=== PATIENT | male | born 1955 | race Caucasian/White ===

== ENCOUNTER 2017-04-23 09:52 | Day surgery (SDC) | payer OTHER ==
[2017-04-22 08:57] VITALS: BMI 25.0
[~2017-04-23 09:52] MED LIST: LACTATED RINGERS 1,000 ML IV SCH
[2017-04-23 10:26] VITALS: RESP 16; TEMP 97.6
[2017-04-23] MEDS ORDERED: LIDOCAINE 1% 20 ML VIAL (10MG/ML) FOR IV START INTRADERMA ONE (10:35)
[2017-04-23] MEDS ORDERED: PROPOFOL 10 MG/ML 20 ML VIAL IV ONE (11:08)
--- NOTE | 2017-04-23 11:28 | P.PCN ---
Date of Procedure: 04/23/17 Procedure(s) Performed: BRIEF HISTORY: Patient is a 61-year-old pleasant white male, scheduled for an elective colonoscopy as a part of evaluation of prior history of colon polyps. PROCEDURE PERFORMED: Colonoscopy with snare polypectomy. PREOPERATIVE DIAGNOSIS: Colon polyps. IV sedation per Anesthesia. PROCEDURE: After informed consent was obtained, the patient, was brought into the endoscopy unit. IV sedation was administered by Anesthesia under continuous monitoring. Digital rectal examination was normal. Initially the Olympus CF- 160 flexible video colonoscope was then inserted in the rectum, gradually advanced into the cecum without any difficulty. Careful examination was performed as the scope was gradually being withdrawn. Ileocecal valve and the appendiceal orifice were visualized and appeared normal. Prep was excellent. Mucosa of the cecum, appeared normal. In the ascending colon there was a 1 cm polyp removed by snare polypectomy. The rest of the ascending colon, transverse colon, appeared normal. In the descending colon at the 45 cm from the anal verge there was a 1 segment of polyp removed by snare polypectomy. In the sigmoid colon there was a 1.5 cm pancreatic polyp status post polypectomy. In the rectum; there was another 1 cm polyp removed by snare polypectomy. Rest of the descending colon, sigmoid colon, and rectum appeared normal. Retroflexion was performed in the rectum and no lesions were seen. The patient tolerated the procedure well. IMPRESSION: 1 cm ascending colon polyp status post was snare polypectomy 1 cm descending colon polyp serous was snare polypectomy 1.5 cm pedunculated sigmoid colon polyp serous was snare polypectomy 1 cm rectosigmoid polyp serous posterior polypectomy RECOMMENDATIONS: Findings of this examination were discussed with the patient as well as his family. He was advised to follow with the biopsy results. If the biopsy reveals tubular adenoma, he can have a repeat colonoscopy in 3 years.
[2017-04-23 12:06] VITALS: BP 116/68; PULSE 56
== END 2017-04-23 12:10 | disposition home or self-care (01) ==
LOC: ORWHC2ENDO 09:52
PROVIDERS: ATTEND Internal Medicine Gastroenterology
DX: Z12.11 Encounter for screening for malignant neoplasm of colon (principal); D12.2 Benign neoplasm of ascending colon; D12.4 Benign neoplasm of descending colon; D12.5 Benign neoplasm of sigmoid colon; D12.7 Benign neoplasm of rectosigmoid junction; Z86.010 Personal history of colon polyps; E78.5 Hyperlipidemia, unspecified; Z79.899 Other long term (current) drug therapy
CPT/HCPCS: 88305; 45385; J2704

== ENCOUNTER 2020-12-01 10:47 | Day surgery (SDC) | payer OTHER ==
[2020-12-01 12:55] VITALS: TEMP 97.5
[2020-12-01] MEDS ORDERED: LIDOCAINE 1% (10MG/ML) FOR IV START INTRADERMA ONE (13:02)
[2020-12-01] MEDS ORDERED: LACTATED RINGERS 1,000 ML IV ONE (13:02)
[2020-12-01] MEDS ORDERED: PROPOFOL 10 MG/ML 20 ML VIAL IV ONE (14:39)
--- NOTE | 2020-12-01 15:10 | P.PCN ---
Date of Procedure: 12/01/20 Procedure(s) Performed: BRIEF HISTORY: Patient is a 64-year-old pleasant white male scheduled for an elective colonoscopy as a part of value should prior history of colon polyps. Last coloscopy was 3 years ago. PROCEDURE PERFORMED: Colonoscopy snare polypectomy. PREOPERATIVE DIAGNOSIS: History of colon polyps. IV sedation per Anesthesia. PROCEDURE: After informed consent was obtained, the patient, was brought into the endoscopy unit. IV sedation was administered by Anesthesia under continuous monitoring. Digital rectal examination was normal. Initially the Olympus CF-160 flexible video colonoscope was then inserted in the rectum, gradually advanced into the cecum without any difficulty. Careful examination was performed as the scope was gradually being withdrawn. Ileocecal valve and the appendiceal orifice were visualized and appeared normal. Prep was excellent. 5 mm cecal polyp status post polypectomy Mucosa of the cecum, ascending colon, transverse colon, descending colon appeared normal. In the sigmoid colon there was a 1 segment of polyp removed by snare polypectomy. Rest of the, sigmoid colon, and rectum appeared normal. Retroflexion was performed in the rectum and no lesions were seen. The patient tolerated the procedure well. IMPRESSION: 5 mm cecal polyp status post polypectomy 7-8 mm sigmoid polyp status post polypectomy .RECOMMENDATIONS: Findings of this examination were discussed with the patientas well as his family. He was advised to follow with the biopsy results. If the biopsy revealed adenoma he can have a repeat colonoscopy in 5 years].
[2020-12-01 15:37] VITALS: BP 108/72; PULSE 62; RESP 16
== END 2020-12-01 16:01 | disposition home or self-care (01) ==
LOC: ORWHC2ENDO 10:47
PROVIDERS: ATTEND Internal Medicine Gastroenterology
DX: Z12.11 Encounter for screening for malignant neoplasm of colon (principal); D12.0 Benign neoplasm of cecum; D12.5 Benign neoplasm of sigmoid colon; Z86.010 Personal history of colon polyps; E78.5 Hyperlipidemia, unspecified; K21.9 Gastro-esophageal reflux disease without esophagitis; Z79.899 Other long term (current) drug therapy
CPT/HCPCS: 45385; 88305; J2704